=== PATIENT | male | born 2000 | race Caucasian/White ===

== ENCOUNTER 2023-05-19 10:09 | Emergency (ER) | payer BC, MEDICAID, OTHER ==
[~2023-05-19] VITALS: Ht 182.9 cm; Wt 84.0 kg
[2023-05-19 11:26] VITALS: BP 110/72; PULSE 78; RESP 16; TEMP 97.8; O2SAT 96
[2023-05-19] MEDS ORDERED: NAP500T PO (12:48)
== END 2023-05-19 12:57 | disposition home or self-care (01) ==
LOC: ER 10:09
DX: S93.692A Other sprain of left foot, initial encounter (principal); Z79.899 Other long term (current) drug therapy; V86.99XA Unspecified occupant of other special all-terrain or other off-road motor vehicle injured in nontraffic accident, initial encounter; Y93.89 Activity, other specified; Y92.89 Other specified places as the place of occurrence of the external cause; Y99.8 Other external cause status
CPT/HCPCS: 73610; 73630